=== PATIENT | male | born 1945 | race Caucasian/White ===

== ENCOUNTER 2019-11-10 13:08 | Emergency (ER) | payer MEDICARE, OTHER ==
--- NOTE | 2019-11-10 13:51 | EDM.PDOC ---
ED HPI GENERAL MEDICAL PROBLEM - General Chief Complaint: Lower Extremity Injury/Pain Stated Complaint: R LEG SWELLING Time Seen by Provider: 11/10/19 13:35 Source of Information: Reports: Patient History Limitations: Reports: No Limitations - History of Present Illness INITIAL COMMENTS - FREE TEXT/NARRATIVE: 73-year-old male with bilateral knee replacement history, has had intermittent right leg edema in the past but yesterday had significant swelling in his right leg at the end of the day that extended from above the knee down to the ankle. He also had pain in the popliteal area and thigh of the leg that was fairly significant overnight. He put compression stockings on that he had leftover from his surgery and the swelling is down this morning but he still having some discomfort in the thigh. He called the nurse hotline and they recommended to come in to get an ultrasound. He has no fevers or chills, he has had no recent trauma, he is not on anticoagulants. Onset: Gradual Duration: Day(s): (Symptoms over the past 12 to 18 hours) Location: Reports: Lower Extremity, Right Associated Symptoms: Reports: No Other Symptoms. Denies: Chest Pain, Fever/ Chills, Shortness of Breath Right Leg Pain Score (Numeric/FACES): 5 - Related Data Allergies Allergy/AdvReac Type Severity Reaction Status Date / Time Penicillins Allergy Hives Verified 11/10/19 13:24 Home Meds: Home Meds Levothyroxine [Synthroid] 50 mcg PO ACBREAKFAST 11/10/19 [History] atorvaSTATin [Lipitor] 40 mg PO BEDTIME 11/10/19 [History] traZODone 100 mg PO BEDTIME 11/10/19 [History] Past Medical History Cardiovascular History: Reports: High Cholesterol, Other (See Below) Other Cardiovascular History: SVT Endocrine/Metabolic History: Reports: Hypothyroidism - Past Surgical History Cardiovascular Surgical History: Reports: Cardiac Ablation Endocrine Surgical History: Reports: Thyroidectomy Musculoskeletal Surgical History: Reports: Knee Replacement, Shoulder Surgery Social & Family History - Tobacco Use Smoking Status *Q: Never Smoker - Caffeine Use Caffeine Use: Reports: Coffee - Recreational Drug Use Recreational Drug Use: No Review of Systems - Review of Systems Review Of Systems: See Below Constitutional: Denies: Fever Respiratory: Reports: No Symptoms Cardiovascular: Reports: No Symptoms Musculoskeletal: Reports: Leg Pain Skin: Denies: Bruising Neurological: Denies: Headache ED EXAM, GENERAL - Physical Exam Exam: See Below Exam Limited By: No Limitations General Appearance: Alert, No Apparent Distress Respiratory/Chest: No Respiratory Distress Extremities: Other (Exam of the lower extremities reveals symmetry, no edema is present at this time of either lower extremity. He has well-healed surgical scars over the anterior aspects of both knees. There is some deep tenderness to palpation to the posterior thigh on the right side and some mild discomfort in the upper gastrocnemius area and popliteal area but no cords or focal tenderness. The knee does not have an effusion. He has an excellent dorsalis pedis pulse.) Course - Vital Signs Last Recorded V/S: Last Vital Signs Temp 97.4 F 11/10/19 13:30 Pulse 53 L 11/10/19 13:30 Resp 16 11/10/19 13:30 BP 134/70 11/10/19 13:30 Pulse Ox 99 11/10/19 13:30 - Orders/Labs/Meds Orders: Active Orders 24 hr Category Date Time Status VL Duplex Lwr Ext Veins Ltd Rt [US] Stat Exams 11/10/19 13:45 Taken - Re-Assessments/Exams Free Text/Narrative Re-Assessment/Exam: 11/10/19 13:51 Ultrasound was called in to confirm normal deep vein drainage of the right lower extremity. 11/10/19 14:57 Keep an ultrasound of the right leg was negative. Patient was reassured and encouraged to continue activity as tolerated, watch his salt intake and recheck later this week if not improving satisfactorily. Departure - Departure Time of Disposition: 15:04 Disposition: Home, Self-Care 01 Clinical Impression: Leg edema, right - Discharge Information Instructions: Edema, [id number] Referrals: PCP,None [Primary Care Provider] - Forms: ED Department Discharge Care Plan Goals: Continue using support stocking for swelling when needed, avoid extra salt intake and increase activity as tolerated. Return anytime if worsening or concerns such as fever or increased pain. Sepsis Event Note - Evaluation Sepsis Screening Result: No Definite Risk - Focused Exam Vital Signs: Vital Signs Temp Pulse Resp BP Pulse Ox 11/10/19 13:30 97.4 F 53 L 16 134/70 99 Date Exam was Performed: 11/10/19 Time Exam was Performed: 18:49 - My Orders Last 24 Hours: My Active Orders 11/10/19 13:45 VL Duplex Lwr Ext Veins Ltd Rt [US] Stat - Assessment/Plan Last 24 Hours: My Active Orders 11/10/19 13:45 VL Duplex Lwr Ext Veins Ltd Rt [US] Stat
--- NOTE | 2019-11-11 10:02 | US ---
VL Duplex Lwr Ext Veins Ltd Rt INDICATION: leg pain, swelling FINDINGS: Ultrasound examination of the lower extremity using Doppler and compressive technique demonstrates that the common femoral, femoral, and popliteal veins are patent, and negative for thrombus. The calf veins were segmentally visualized and are negative where seen. IMPRESSION: Negative for deep venous thrombosis.
== END 2019-11-10 15:04 | disposition home or self-care (01) ==
LOC: JP.ED 13:08
DX: R60.0 Localized edema (principal); E78.00 Pure hypercholesterolemia, unspecified; E03.9 Hypothyroidism, unspecified; Z88.0 Allergy status to penicillin; Z79.899 Other long term (current) drug therapy
CPT/HCPCS: 93971-26; 93971-RT; 99284-25

== ENCOUNTER 2022-02-03 19:35 | Observation (INO) | payer MEDICARE, OTHER ==
[2022-02-03] MEDS ORDERED: Sodium Chloride 0.9% 1,000 ML IV SCH (20:15)
[2022-02-03 20:29] LABS: ESTIMATED GFR 63 mL/min (>60)
[2022-02-03] MEDS ORDERED: Iopamidol 755 Mg/ML 100 ML Bottle IV SCH (20:45)
[2022-02-03] MEDS ORDERED: Sodium Chloride 0.9% 100 ML IV SCH (20:45)
[2022-02-03 20:53] LABS: TROPONIN I HIGH SENSITIVITY 5.2 pg/mL (<=60.3)
[2022-02-03] MEDS: Aspirin 325 MG Tab.EC PO SCH (23:15)
[2022-02-03] MEDS: Clopidogrel 75 MG Tab PO SCH (23:15)
[2022-02-04] MEDS: Aspirin 325 MG Tab.EC PO SCH (09:16)
[2022-02-04] MEDS: Clopidogrel 75 MG Tab PO SCH (09:16)
[2022-02-04] MEDS ORDERED: Sodium Chloride 0.9% 10 ML Syringe FLUSH PRN (10:11)
[2022-02-04] MEDS ORDERED: Ondansetron 4 MG/2 ML SDV IV PRN (10:11)
[2022-02-04] MEDS ORDERED: Acetaminophen 325 MG Tab PO PRN (10:11)
[2022-02-04] MEDS: Enoxaparin 40 MG/0.4 ML Syringe SUBCUT SCH (10:47)
[2022-02-04] MEDS ORDERED: traZODone 50 MG Tab PO SCH (21:00)
[2022-02-04] MEDS ORDERED: atorvaSTATin 20 MG Tab PO SCH (21:00)
[2022-02-05] MEDS ORDERED: Levothyroxine 50 MCG Tab PO SCH (07:30)
[2022-02-05] MEDS: Clopidogrel 75 MG Tab PO SCH (08:47)
[2022-02-05] MEDS: Aspirin 325 MG Tab.EC PO SCH (08:47)
[2022-02-05] MEDS: Enoxaparin 40 MG/0.4 ML Syringe SUBCUT SCH (08:47)
== END 2022-02-05 11:58 | disposition home or self-care (01) ==
LOC: JP.ED 19:35 → JP.MS 02-04 08:08
PROVIDERS: ADMIT Hospitalist; ATTEND Hospitalist
DX: G45.9 Transient cerebral ischemic attack, unspecified (principal); E03.9 Hypothyroidism, unspecified; I48.91 Unspecified atrial fibrillation; E04.9 Nontoxic goiter, unspecified; E78.00 Pure hypercholesterolemia, unspecified; Z79.899 Other long term (current) drug therapy; Z79.890 Hormone replacement therapy; Z79.82 Long term (current) use of aspirin; Z79.02 Long term (current) use of antithrombotics/antiplatelets; Z88.0 Allergy status to penicillin; Z96.659 Presence of unspecified artificial knee joint; Z98.890 Other specified postprocedural states; Z20.822 Contact with and (suspected) exposure to COVID-19
CPT/HCPCS: 36415; 70450; 70496; 70498; 80053; 83605; 84484; 85025; 93005; 93010; 96360; 96361; 96372; 99217; 99219; 99285; A9270; G0378; J1650; J3490; J7030; Q9967; U0002